=== PATIENT | female | born 1990 | race Hispanic/Latino ===

== ENCOUNTER 2022-10-30 11:00 | Emergency (ER) | payer OTHER ==
--- OUTSIDE RECORDS SUMMARY | 2022-10-30 11:06 | XMS REPORT | Continuity of Care Document ---
:1990 Author Organization [facility] t Address [address] [place] [address] [place] [id number] Care Team Providers Name Role Phone Mohini Bautista CNM Attending Clinician Unavailable GC_WHCBAY_Popillion Attending Clinician Unavailable Liyah Archuleta CNM Attending Clinician Unavailable Mohini Bautista CNM Admitting Clinician Unavailable Liyah Archuleta CNM Admitting Clinician Unavailable GC_WHCBAY_Popillion Admitting Clinician Unavailable Payers Payer Name Policy Type Policy Number Effective Date Expiration Date Rc triplett [facility] [id number] 2016 00:00:00 [employer] (MEDICAID HMO) Problems This patient has no known problems. Allergies, Adverse Reactions, Alerts This patient has no known allergies or adverse reactions. Medications This patient has no known medications. Procedures This patient has no known procedures. Encounters Start End Encounter Admission Attending Care Care Encounter Source Date/Time Date/Time Type Type Clinicians Facility Department ID 2022-10-20 Inpatient RUBENS Jett CLBT [id number] [facility] 00:23:00 Mohini [facility] 2022-10-02 2022-10-19 Outpatient RUBENS Jett CLBT [id number] [facility] 08:55:00 00:00:00 Mohini Calderón [facility] 2022-10-10 2022-10-10 Outpatient GC_WHCBAY_P PRIV PRIV [id number] [facility] 00:00:00 00:00:00 opillion [id number] Medic al 2022-10-10 2022-10-10 Outpatient GC_WHCBAY_P PRIV PRIV [id number] [facility] 00:00:00 00:00:00 [facility] [id number] Medic al 2022-09-17 2022-09-17 Outpatient Geremias, AILYN LABO [id number] [facility] 12:00:00 12:00:[address] [place] [address] Results Test Description Test Time Test Comments Results Result Comments Source CF MUTATION/POLYMORPHISMS 2022-09-24 21:07:00 Test Item Value Reference Range Interpretation Comme nts CF MUTATION/POLYMORPHISMS Comment: See_Comment RE SULTS: Negative for the 97 (test code = CFMUTPOLY) muta tions analyzedINTERPR ETATION:This individual is n egative for the mutations rachel zed.This negative result may need further interpretationd epending on the clinical indica tion. This result reducesbut does not eliminate the risk to be a CF carrier.COMMENTS:The detection rate varies with ethnicity and is listedbe low. The presence of an undetected m utation in the CFgene cannot be ruled out. In the absence of family histo ry,the remaining risk that a person w ith a negative resultcould hav e at least one CF mutation is lis gustavo in the table.If there is a fami ly history of CF, these risk figu res donot apply. As detailed inform ation regarding thisindividual' s family history would permit a more accurateassessm ent of this individual's ri sk to be a carrier ofcystic fibros is, please contact [facility] [phone] for a revised report.Mutation Detection Detection rates are based on mutationRates among Ethnic fr equencies in patients affected withGr oups cystic fibrosis. Among individua ls with an atypical or mild present ation (e.g. congenital abse nce of the vas deferens, pancr eatitis) detection rates may vary from those provided here. Carrier r isk reduction when no family Detectio nEthnicity history Rate References to 81% Jacquie in Me d 3:168, 2000AmericanAkai arnoldi 07/17 to 97% Am J Hum Ge net 51:951,1993Jeprem shAsian - Not Insufficient da ta ProvidedCaucasian 07/16 to 9 3% Jacquie in Med 3:168,2000; Ge net in Med 4:90, 2001Hispanic to 78% Jacquie in Med 3:168,11 07; www.dhs.[place].gov/ pcfh/gdb /html/PDE/CFStu dy.htmJewish, - Varies by Jacquie Testing 5:47, 2000non-Ashkena zi country Jacquie Testing, 1:351996 of originOther orMixed - Not Detection rate notEthnicity Pr ovided determined and varies with eth nicityThis interpretation is based on the clinical and fa milyrelationship information pro vided and the currentundersta nding of the molecular jacquie ics of this condition.MUTAT IONS ANALYZED:deltaF 311 4544hvl1 CFTRdele2,3 R33 4W*xideuB016* 3659delC* D1152 H N083AglwbtA300* 9875icb7 E60X R 347P*1078delT 3791delC E92X R 839T4163cpjKR 3849+10kbC to T * G178R R553X*1677delTA 3876delA G330X R560T*1717-1G t o A* 3905insT G480C E278U3132-2D to A 394delTT G542X* P43Y9091+1G to A* 4016insT G551D* N350S3508+5G to T 405+1G to A G85E* G4120U4629igl74 405+3A to C K710X S9519K6725crwW 406-1G to A L206W C8996Q5996yxb3 to A 444delA B2414K Z932S4611gqe81f ns5 457TAT to G O3425Q* Z876V68 08delA 574delA P574H S549R T to G214 3delT 621+1G to T* S3231Z S580M223 3delAA to G 663delT Q359K/T360K V52 1C1472uoaI* 711+1G to T* Q493X H4449N 2184insA 711+5G to A Q552X P0766S733 7insA 712-1G to T Q890X O0338U*27 89+5G to A* 935delA N4836A N1511A C to A1356zfkJ 936delTA S3370M Q1239Z C to G3120+1G to A* A455E* R1 162X* W373R9563E to A A559T X572Z9132 delC C524X R117HACOG/ACM G recommendedMETH ODS/LIMITATIONS:DNA is isolated fro m the sample and tested for the 97 CFmutations on the [employer] (ExtendEvent).Regio ns of the CFTR gene are amplified e nzymatically andsubjected to a solution-phase multiplex allel e-specificprimer extension with subsequent hybridization t o a beadarray and fluorescence de tection. Polymorphisms F 508C,I506V and I507V are included in this panel to rule outfalse positi ve uwqptR299 homozygotes. Re flex testing of5T is included in the panel for R117H interpretation. False positive or negative result s may occur for reasonsthat inc lude genetic variants, blood transfusions, bonemarrow longo splantation, erroneous repre sentation offamily relationships o r contamination of a samplewit h maternal cells. The assay provides informationintended to be used for carrier screening in adults ofreprod uctive age, as an aid in scre ening, andas a confirmatory te st for another medicallyestabl ished diagnosis in newborns and ch ildren. Thetest is not intended fo r use in diagnostictesti ng, pre-implantation screening, or f or anystand-alone diagnostic purp oses without confirmationby another medically established amanda gnostic productor procedure.Resul ts Released By: Martínez almodovar, Ph.D., DirectorReport Released By: Martínez Castaneda, Ph. D., DirectorPerformed At: [facility] [id number] [place], [place] [id number] Anjen [facility] [Automated message] The sy stem which generated this result tra nsmitted reference range: (). The reference range was not used to int erpret this result as normal/abnormal . AB HEPATITIS [id number] 05:12:00 Test Item Value Reference Range Interpretation Comments AB HEPATITIS C Non Reactive Non Reactive HCV antibody alone does (test code = not differentia te HCVAB) betweenprevious ly resolved infect ion and active infection.Equiv ocal and Reactive HCV an tibody results should befollowed up w ith an HCV RNA test to support the diagnosisof active HCV infection.P erformed At: [facility] [id number] [place], [place] [id number] Godfrey Bishop MD Ph:[phone] DRUGS OF ABUSE SCREEN [id number] 21:45:00 Test Item Value Reference Range Interpretation Comments UA PH DIPSTICK (test 6.0 5.0-8.0 code = DOMO) URN COCAINE (test code = NEGATIVE See_Comment [A utomated message] COCAURN) The system [employer] generated this result transmitted ref erence range: <300 ng/ mL. The reference r buzz was not used to interpret this result as normal/abnor mal. URN CANNABINOIDS (test NEGATIVE See_Comment [Aut omated message] code = CANNABURN) The system which generated this result transmitted ref erence range: <50 ng/m L. The reference range was not used to int erpret this result as normal/abnormal . URN AMPHETAMINE (test NEGATIVE See_Comment [Auto mated message] code = AMPHETURN) The system which generated this result transmitted ref erence range: <1000 ng /mL. The reference r buzz was not used to interpret this result as normal/abnor mal. URN BARBITURATE (test NEGATIVE See_Comment [Auto mated message] code = BARBITURN) The system which generated this result transmitted ref erence range: <200 ng/ mL. The reference r buzz was not used to interpret this result as normal/abnor mal. URN BENZODIAZEPINE (test NEGATIVE See_Comment [A utomated message] code = BENZOURN) The system which generated this result transmitted ref erence range: <200 ng/ mL. The reference r buzz was not used to interpret this result as normal/abnor mal. URN OPIATES (test code = NEGATIVE See_Comment [A utomated message] OPIATURN) The system [employer] generated this result transmitted ref erence range: <300 ng/ mL. The reference r buzz was not used to interpret this result as normal/abnor mal. URN PHENCYCLIDINE (PCP) NEGATIVE See_Comment [Au tomated message] (test code = PHENCURN) The s ystem which generated this result transmitted ref erence range: <25 ng/m L. The reference range was not used to int erpret this result as normal/abnormal . URN METHADONE (test code NEGATIVE See_Comment [A utomated message] = METHAURN) The system [employer] generated this result transmitted ref erence range: <300 ng/ mL. The reference r buzz was not used to interpret this result as normal/abnor mal. AB HIV 1 21:39:00 Test Item Value Reference Range Interpretation Comments AB HIV 1 2 (test Nonreactive NonReactive It is recog nized that code = EUB70QE) currently av ailable assays for thed etection of antibodies t o HIV-1 and/or HIV-2 ma y notdetect all i nfected individuals. A negative test result sharp snot exclude the pos sibility of exposure to or infection withH IV. HIV antibodies may be undetectable in some stages ofthe in fection and in some cli nical conditions. GESTATION SCREEN [id number] 21:32:00 Test Item Value Reference Range Interpretation Comments GESTATION SCREEN GLUCOSE (test code 178 mg/mL 90-140 H = GLU1S) THYROID STIMULATING [id number] 21:28:00 Test Item Value Reference Range Interpretation Comments THYROID STIMULATING 1.425 uIU/mL 0.36-3.74 N TSH REFE RENCE HORMONE (test code = RANGES: EUTHYROID: TSH) 0.35 - 4.3 mIU/ mL HYPO : > 5.5 mI U/mL HYPER : < 0.35 mIU/mL AG HEPAT B [id number] 21:26:00 Test Item Value Reference Range Interpretation Comments AG HEPAT B SURF (test code NonReactive Index Nonreactive = HBSAG) AB RUBELLA [id number] 21:26:00 Test Item Value Reference Range Interpretation Comments AB RUBELLA IGG Positive See_Comment IU/ML INTERP RETATION (test code = IUnit/mL OF SERUM RUBELL A-IGG RUBGAB) AB --------- ------- ---< 5.0 NEGATIVE - NO RUBELLA IGG ANT IBODY DETECTED5.0-9.9 EQUIVOCAL>= 10. 0 POSITIVE - RUBE LLA IGG ANTIBODY DETECT ED [Automated mess age] The system [employer] generated this result transmitted ref erence range: <5.0=Neg . The reference range was not used to int erpret this result as normal/abnormal . AB [id number] 21:26:00 Test Item Value Reference Range Interpretation Comments AB TREPONEMA (test code = Negative Index NonReactive TREPAB) CBC W/AUTO [id number] 18:27:00 Test Item Value Reference Range Interpretation Comments WHITE BLOOD CELL (test code = 10.9 K/mm3 4.5-12.5 N WBC) RED BLOOD CELL (test code = 4.99 mill/mm3 3.7-5.2 N RBC) HEMOGLOBIN (test code = HGB) 13.9 gram/dL 11.5-15.5 N HEMATOCRIT (test code = HCT) 41.9 % 36.0-46.0 N MEAN CELL VOLUME (test code = 84.0 fL 80-98 N MCV) MEAN CELL HGB (test code = MCH) 27.9 picogram 27.0-33.0 N MEAN CELL HGB CONCETRATION 33.2 gram/dL 33.0-36.0 N (test code = MCHC) RED CELL DISTRIBUTION WIDTH 13.1 % 11.6-16.2 N (test code = RDW) RED CELL DISTRIBUTION WIDTH SD 39.5 fL 37.0-51.0 N (test code = RDW-SD) PLATELET COUNT (test code = 339 K/mm3 150-450 N PLT) MEAN PLATELET VOLUME (test code 11.1 fL 6.7-11.0 H = MPV) NEUTROPHIL % (test code = NT%) 74.9 % 39.0-69.0 H IMMATURE GRANULOCYTE % (test 0.5 % 0.0-5.0 N code = IG%) LYMPHOCYTE % (test code = LY%) 18.6 % 25.0-55.0 L MONOCYTE % (test code = MO%) 4.4 % 0.0-10.0 N EOSINOPHIL % (test code = EO%) 1.2 % 0.0-5.0 N BASOPHIL % (test code = BA%) 0.4 % 0.0-1.0 N NUCLEATED RBC % (test code = 0.0 % 0-0 N NRBC%) NEUTROPHIL # (test code = NT#) 8.18 K/mm3 1.8-7.7 H IMMATURE GRANULOCYTE # (test 0.05 x10 3/uL 0-0.03 H code = IG#) LYMPHOCYTE # (test code = LY#) 2.03 K/mm3 1.0-5.0 N MONOCYTE # (test code = MO#) 0.48 K/mm3 0-0.8 N EOSINOPHIL # (test code = EO#) 0.13 K/mm3 0.0-0.5 N BASOPHIL # (test code = BA#) 0.04 K/mm3 0.0-0.2 N NUCLEATED RBC # (test code = 0.00 K/mm3 0.0-0.1 N NRBC#) URINALYSIS [id number] 12:05:00 Test Item Value Reference Range Interpretation Comments UA GLUCOSE DIPSTIC POC (test code Negative Negative = GLUUP) UA KETONE DIPSTICK POC (test code Negative Negative = KETUP) UA BLOOD DIPSTIC POC (test code = Negative NEGATIVE BLUP) UA PH DIPSTIC POC (test code = 5 5-8 N PHUP) UA PROTEIN DIPSTICK POC (test code 15 (Trace) Neg - 15 A = DPROUP) UA NITRITE DIPSTICK POC (test code Negative Negative = NITUP) UA LEUKOCYTE ESTERASE POC (test NEGATIVE NEGATIVE code = LEUUPOC) UA GLU: NEGATIVEKET UA NEGATIVEPH UA 5.0UA NIT NegativePROT UA 15 (TRACE)BL UA NEGATIVEUA YOVANY NegativeTime performed: 1008
[2022-10-30 11:37] LABS: Absolute Lymphocytes (CBC) 1.7 K/uL (0.7-4.9); Lymphocytes % 14.7 % (15.3-44.8); MCV 83.5 fL (80-100); MPV 8.6 fL (7.6-11.3); RBC Red Blood Cell Count 4.55 M/uL (3.86-4.86)
[2022-10-30 11:51] LABS: Specific Gravity 1.029 (1.005-1.030); Urine Bacteria >50 /HPF (<20); Urine Bilirubin NEGATIVE (Negative); Urine Blood 1+ (Negative); Urine Clarity Turbid (Clear); Urine Color Yellow (Yellow); Urine Glucose NEGATIVE (Negative); Urine Mucus 1+ /HPF (None Seen); Urine Protein 1+ (Negative); Urine Urobilinogen Normal (Normal)
[2022-10-30 12:11] LABS: Albumin 3.1 g/dL (3.4-5.0); Bilirubin Total 0.3 mg/dL (0.2-1.0); Potassium 3.7 mEq/L (3.5-5.1); Protein, Total 7.5 g/dL (6.4-8.2)
--- NOTE | 2022-10-30 12:16 | RAD REPORT ---
EXAM DESCRIPTION: US - OB Limited - 10/30/2022 11:54 am CLINICAL HISTORY: VAGINAL BLEEDING COMPARISON: No comparisons TECHNIQUE: Sonographic grayscale and color flow images of a second -trimester were obtaine d through approach. FINDINGS: A single live intrauterine is identified. Placenta has formed anteriorly. Biparietal diameter: 3.52 cm, corresponding to gestational age 16 weeks and 5 days. Head circumference: 12.94 cm, corresponding to gestational age 16 weeks and for days. Abdominal circumference: 11.15 cm, corresponding to gestational age 16 weeks and 6 days. Femur length: 2.08 cm, corresponding to gestational age 16 weeks and 1 days. heart rate: 152 BPM. Maternal ovaries are unremarkable. No free fluid. IMPRESSION: 1. Single live intrauterine . No abnormalities detected. 2. Calculated gestational age: 16 weeks, 4 days. Estimated due date by ultrasound: 04/12/2023.
[2022-10-30] MEDS ORDERED: NA CHLORIDE 0.9% 50 ML ONE (12:33)
[2022-10-30] MEDS ORDERED: CEFTRIAXONE 1000 MG/VIAL ONE (12:33)
--- NOTE | 2022-10-30 12:34 | ER ---
Nurse's Notes [facility] Name: Latrice Stevens Age: 32 yrs Sex: Female : 1990 Arrival Date: 10/30/2022 Time: 11:00 Bed 19 Private MD: Diagnosis: Vaginal bleeding in second trimester of ;Urinary tract infection in ;Abdominal cramping Presentation: 10/30 11:11 Chief complaint: Patient states: Vaginal bleeding since this morning. LMP 07/05/2022. ld1 Coronavirus screen: At this time, the client does not indicate any symptoms associated with coronavirus-19. Ebola Screen: No symptoms or risks identified at this time. Initial Sepsis Screen: Does the patient meet any 2 criteria? No. Patient's initial sepsis screen is negative. Does the patient have a suspected source of infection? No. Patient's initial sepsis screen is negative. Risk Assessment: Do you want to hurt yourself or someone else? Patient reports no desire to harm self or others. Onset of symptoms was October 30, 2022. 11:11 Method Of Arrival: Ambulatory ld1 11:11 Acuity: ADELAIDE 3 ld1 Triage Assessment: 11:11 General: Appears in no apparent distress. comfortable, Behavior is calm, cooperative, ld1 appropriate for age. Pain: Denies pain. EENT: No signs and/or symptoms were reported regarding the EENT system. Neuro: Level of Consciousness is awake, alert, obeys commands, Oriented to person, place, time, situation. Cardiovascular: Capillary refill < 3 seconds Patient's skin is warm and dry. Respiratory: Airway is patent Respiratory effort is even, unlabored. GI: Abdomen is round non-distended. : Reports vaginal bleeding that is. Derm: No signs and/or symptoms reported regarding the dermatologic system. Musculoskeletal: No signs and/or symptoms reported regarding the musculoskeletal system. DREDGE PUMPER: 11:11 LMP 07/05/2022 ld1 Historical: - Allergies: 11:11 No Known Allergies; ld1 - PMHx: 11:11 Hypertensive disorder; ld1 - PSHx: 11:11 section; ld1 - Immunization history:: Adult Immunizations up to date, Client reports receiving the 2nd dose of the Covid vaccine. - Social history:: Smoking status: Patient denies any tobacco usage or history of. Patient/guardian denies using alcohol. Screenin:48 [facility] ED Fall Risk Assessment (Adult) Score/Fall Risk Level 0 - 2 = Low Risk ph Oriented to surroundings, Maintained a safe environment, Educated pt \T\ family on fall prevention, incl call for assistance when getting out of bed, Hourly rounding (assess needs \T\ fall precautionary measures) done. Abuse screen: Denies threats or abuse. Nutritional screening: No deficits noted. Tuberculosis screening: No symptoms or risk factors identified. Assessment: 11:24 Reassessment: No changes from previously documented assessment. Patient and/or family ll1 updated on plan of care and expected duration. Pain level reassessed. Patient is alert, oriented x 3, equal unlabored respirations, skin warm/dry/pink. 12:32 Reassessment: Patient appears in no apparent distress at this time. Patient and/or ph family updated on plan of care and expected duration. Pain level reassessed. Patient is alert, oriented x 3, equal unlabored respirations, skin warm/dry/pink. 12:48 Reassessment: No changes from previously documented assessment. Patient and/or family ph updated on plan of care and expected duration. Pain level reassessed. Patient is alert, oriented x 3, equal unlabored respirations, skin warm/dry/pink. Vital Signs: 11:11 Weight 101.15 kg; Height 5 ft. 3 in. ; Pain 0/10; ld1 11:11 Pulse 118; ld1 11:11 BP 133 / 106; Temp 98.6(O); Pulse Ox 100% on R/A; ld1 12:49 BP 119 / 75; Pulse 96; Resp 17; Pulse Ox 99% ; ph 11:11 Body Mass Index 39.50 (101.15 kg, 160.02 cm) ld1 11:11 Pain Scale: Adult ld1 ED Course: 11:02 Patient arrived in ED. rg4 11:05 Abril Grady MD is Attending Physician. sd2 11:07 Arm band placed on Patient placed in an exam room, on a stretcher. ll1 11:10 Olga eHrcules RN is Primary Nurse. ll1 11:12 Triage completed. ld1 11:24 Urinalysis w/ reflexes Sent. ll1 11:24 Inserted saline lock: 20 gauge in left antecubital area, using aseptic technique. Blood ll1 collected. 11:55 US OB Limited In Process Unspecified. EDMS 12:48 No provider procedures requiring assistance completed. IV discontinued, intact, ph bleeding controlled, No redness/swelling at site. Pressure dressing applied. 12:49 Patient has correct armband on for positive identification. Bed in low position. Call ph light in reach. Cardiac monitoring not applicable on this patient. Administered Medications: 12:31 Drug: Rocephin IV 1 grams Route: IV; Rate: bolus; Site: left antecubital; ph 12:49 Follow up: Response: No adverse reaction; IV Status: Completed infusion; IV Intake: 50mlph Medication: 12:49 VIS not applicable for this client. ph Intake: 12:49 IV: 50ml; Total: 50ml. ph Outcome: 12:34 Discharge ordered by . [email or web address] 12:48 Discharged to home ambulatory. ph 12:48 Condition: stable 12:48 Discharge instructions given to patient, family, Instructed on discharge instructions, follow up and referral plans. medication usage, Demonstrated understanding of instructions, follow-up care, medications, Prescriptions given X 1. 12:50 Patient left the ED. ph Signatures: Dispatcher [employer] EDMS Rosalva Lake RN RN ph Garcia, Rubi rg4 Olga Hercules RN RN ll1 Alma Holden RN RN ld1 Abril Grady MD MD sd2
--- NOTE | 2022-10-30 12:34 | EDPHYS ---
Physician Documentation [facility] Name: Latrice Stevens Age: 32 yrs Sex: Female : 1990 Arrival Date: 10/30/2022 Time: 11:00 Bed 19 Private MD: LAKHWINDER Physician Abril Grady HPI: 10/30 11:19 This 32 yrs old Female presents to ER via Ambulatory with complaints of 16 sd2 Weeks , Vaginal Bleeding. 11:19 32-year-old female at 16 weeks gestation presents with chief complaint of vaginal sd2 bleeding. She reports that started this morning and that she only notices it when wiping. She did put a pad on but has not had any noticeable bleeding except when she goes to the restroom. She also states she has had a very small amount of abdominal pain. She does have a cervical cerclage in place due to having her prior son at 27 weeks. This was placed at the end of September. Her [facility] is located in [place].. [facility]: 11:11 LMP 07/05/2022 ld1 Historical: - Allergies: 11:11 No Known Allergies; ld1 - PMHx: 11:11 Hypertensive disorder; ld1 - PSHx: 11:11 section; ld1 - Immunization history:: Adult Immunizations up to date, Client reports receiving the 2nd dose of the Covid vaccine. - Social history:: Smoking status: Patient denies any tobacco usage or history of. Patient/guardian denies using alcohol. ROS: 11:19 Constitutional: Negative for fever, chills, and weight loss, Eyes: Negative for injury, sd2 pain, redness, and discharge, Cardiovascular: Negative for chest pain, palpitations, and edema, Respiratory: Negative for shortness of breath, cough, wheezing. 11:19 MS/Extremity: Negative for injury and deformity, Skin: Negative for injury, rash, and discoloration. 11:19 Abdomen/GI: Positive for abdominal pain, Negative for nausea, vomiting, and diarrhea. 11:19 : Positive for vaginal bleeding, Negative for injury or acute deformity, burning with urination, difficulty urinating. Exam: 11:19 Constitutional: This is a well developed, well nourished patient who is awake, alert, sd2 and in no acute distress. Head/Face: Normocephalic, atraumatic. Eyes: EOMI, normal conjunctiva bilaterally Chest/axilla: Normal chest wall appearance and motion. Nontender with no deformity. Cardiovascular: Regular rate and rhythm with a normal S1 and S2. No gallops, murmurs, or rubs. 2+ distal pulses. Respiratory: Lungs have equal breath sounds bilaterally, clear to auscultation and percussion. No rales, rhonchi or wheezes noted. No increased work of breathing, no retractions or nasal flaring. Abdomen/GI: Soft, non-tender, with normal bowel sounds. No guarding or rebound. No evidence of tenderness throughout. Back: No spinal tenderness. No costovertebral tenderness. Full range of motion. Skin: Warm, dry with normal turgor. Normal color with no rashes, no lesions, and no evidence of cellulitis. MS/ Extremity: Pulses equal, no cyanosis. Neurovascular intact. Full, normal range of motion. Ambulatory without difficulty. Psych: Awake, alert, with orientation to person, place and time. Behavior, mood, and affect are within normal limits. Vital Signs: 11:11 Weight 101.15 kg; Height 5 ft. 3 in. ; Pain 0/10; ld1 11:11 Pulse 118; ld1 11:11 BP 133 / 106; Temp 98.6(O); Pulse Ox 100% on R/A; ld1 12:49 BP 119 / 75; Pulse 96; Resp 17; Pulse Ox 99% ; ph 11:11 Body Mass Index 39.50 (101.15 kg, 160.02 cm) ld1 11:11 Pain Scale: Adult ld1 MDM: 11:18 Patient medically screened. sd2 11:19 Differential diagnosis: cervicitis, ectopic , ovarian cyst, uterine fibroids, sd2 urinary tract infection, vaginosis, among others. Data reviewed: vital signs, nurses notes. 12:30 Data reviewed: lab test result(s), radiologic studies, ultrasound. I considered the sd2 following discharge prescriptions or medication management in the emergency department Medications were administered in the Emergency Department. See MAR. Test considered but Not performed: CT: Not indicated with benign abdominal exam and risks outweigh benefits with current . Counseling: I had a detailed discussion with the patient and/or guardian regarding: the historical points, exam findings, and any diagnostic results supporting the discharge/admit diagnosis, lab results, radiology results, the need for outpatient follow up, to return to the emergency department if symptoms worsen or persist or if there are any questions or concerns that arise at home. Response to treatment: the patient's symptoms have markedly improved after treatment. ED course: Labs and imaging reviewed. Labs are consistent with a UTI and Rocephin was given for coverage. The patient will be sent home with Macrobid. The ultrasound does not show any acute abnormalities at this time. After a discussion of the risks and benefits of performing a pelvic exam in the ER, the patient will call her [facility] to have this performed and look out in the near future due to her cervical cerclage to ensure that everything is still in the proper placement. There were no significant abnormalities noted in this area at least on the ultrasound. The patient is not currently actively bleeding and is comfortable with plan for discharge and outpatient follow-up. Her vital signs have improved and she is no longer tachycardic. I believe her first blood pressure was also erroneous and it has improved at time of discharge.. 10/30 11:19 Order name: Abo/rh Typing; Complete Time: 12:08 sd2 10/30 11:19 Order name: CBC with Diff; Complete Time: 11:58 sd2 10/30 11:19 Order name: Urinalysis w/ reflexes; Complete Time: 11:58 sd10/30 11:19 Order name: CMP; Complete Time: 12:17 sd2 10/30 11:19 Order name: HCG-Quantitative; Complete Time: 12:17 sd2 10/30 11:55 Order name: Urine Culture [facility] 10/30 11:19 Order name: US OB Limited; Complete Time: 12:17 sd2 10/30 11:19 Order name: IV Saline Lock; Complete Time: 11:24 sd2 10/30 11:19 Order name: Labs collected and sent; Complete Time: 11:24 sd10/30 11:19 Order name: NPO; Complete Time: 11:24 sd2 Administered Medications: 12:31 Drug: Rocephin IV 1 grams Route: IV; Rate: bolus; Site: left antecubital; ph 12:49 Follow up: Response: No adverse reaction; IV Status: Completed infusion; IV Intake: 50mlph Disposition Summary: 10/30/22 12:34 Discharge Ordered Location: Home sd2 Problem: new sd2 Symptoms: have improved sd2 Condition: Stable sd2 Diagnosis - Vaginal bleeding in second trimester of sd2 - Urinary tract infection in sd2 - Abdominal cramping sd2 Followup: sd2 - With: Private Physician - When: 1 - 2 days - Reason: Recheck today's complaints, Continuance of care, Re-evaluation by your physician Discharge Instructions: - Discharge Summary Sheet sd2 - Vaginal Bleeding During , Second Trimester sd2 - and Urinary Tract Infection sd2 Forms: - Family Work Release ph - Medication Reconciliation Form sd2 - Thank You Letter sd2 - Antibiotic Education sd2 - Prescription Opioid Use sd2 Prescriptions: - Macrobid 100 mg Oral Capsule - take 1 capsule by ORAL route every 12 hours for 7 days; 14 capsule; Refills: 0, sd2 Product Selection Permitted Signatures: Dispatcher [employer] Rosalva Mcdonnell RN RN Alma Holden RN RN ld1 Abril Grady MD MD sd2
[2022-10-30 13:03] VITALS: TEMP 98.6
[2022-10-30 13:04] VITALS: BP 119/75; O2SAT 99
== END 2022-10-30 12:50 | disposition home or self-care (01) ==
LOC: ER 11:00
DX: O23.42 Unspecified infection of urinary tract in pregnancy, second trimester (principal); N39.0 Urinary tract infection, site not specified; Z3A.16 16 weeks gestation of pregnancy
CPT/HCPCS: 96365; 87088; 85025; 81001; 87086; 36415; 86900; 86901; 84702; 80053; 76815; 99284; J0696

== ENCOUNTER 2022-12-04 19:11 | Emergency (ER) | payer OTHER ==
--- OUTSIDE RECORDS SUMMARY | 2022-12-04 19:14 | XMS REPORT | Continuity of Care Document ---
:1990 Author Organization [facility] t Address [address] [place] [address] [place] [address] Care Team Providers Name Role Phone Mohini Bautista CNM Attending Clinician Unavailable GC_WHCBAY_Popillion Attending Clinician Unavailable Liyah Archuleta CNM Attending Clinician Unavailable Mohini Bautista CNM Admitting Clinician Unavailable GC_WHCBAY_Popillion Admitting Clinician Unavailable Liyah Archuleta CNM Admitting Clinician Unavailable Payers Payer Name Policy Type Policy Number Effective Date Expiration Date Rc triplett [facility] [id number] 2016 00:00:00 [employer] (MEDICAID HMO) Problems This patient has no known problems. Allergies, Adverse Reactions, Alerts This patient has no known allergies or adverse reactions. Medications This patient has no known medications. Procedures This patient has no known procedures. Encounters Start End Encounter Admission Attending Care Care Encounter Source Date/Time Date/Time Type Type Clinicians Facility Department ID 2022-10-20 Inpatient NICK Alvarezmadi RUBENS CLBT [id number] [facility] 00:23:00 Mohini Pickard [facility] 2022-12-02 2022-12-02 Outpatient GC_WHCBAY_P PRIV PRIV [id number] [facility] 00:00:00 00:00:00 opillion [id number] Medic al 2022-11-19 2022-11-19 Outpatient GC_WHCBAY_P PRIV PRIV [id number] [facility] 00:00:00 00:00:00 opillion [id number] Medic al 2022-11-19 2022-11-19 Outpatient GC_WHCBAY_P PRIV PRIV [id number] [facility] 00:00:00 00:00:00 opillion [id number] Medic al 2022-11-19 2022-11-19 Outpatient GC_WHCBAY_P PRIV PRIV [id number] [facility] 00:00:00 00:00:00 opillion [id number] Medic al 2022-11-04 2022-11-04 Outpatient GC_WHCBAY_P PRIV PRIV [id number] [facility] 00:00:00 00:00:00 opillion [id number] Medic al 2022-11-02 2022-11-02 Outpatient GC_WHCBAY_P PRIV PRIV [id number] [facility] 00:00:00 00:00:00 opillion [id number] Medic al 2022-10-30 2022-10-30 Outpatient GC_WHCBAY_P PRIV PRIV [id number] [facility] 00:00:00 00:00:00 opillion [id number] Medic al 2022-10-02 2022-10-19 Outpatient EL Bautista, HCABM CLBT [id number] [facility] 08:55:00 00:00:00 Mohini Calderón [facility] 2022-10-10 2022-10-10 Outpatient GC_WHCBAY_P PRIV PRIV [id number] [facility] 00:00:00 00:00:00 opillion [id number] Medic al 2022-10-10 2022-10-10 Outpatient GC_WHCBAY_P PRIV PRIV [id number] [facility] 00:00:00 00:00:00 opillion [id number] Medic al 2022-09-17 2022-09-17 Outpatient Geremias, HCACL LABO [id number] [facility] 12:00:00 12:00:[address] Results Test Description Test Time Test Comments Results Result Comments Source CF MUTATION/POLYMORPHISMS 2022-09-24 21:07:00 Test Item Value Reference Range Interpretation Comme nts CF MUTATION/POLYMORPHISMS Comment: See_Comment RE SULTS: Negative for the 97 (test code = CFMUTPOLY) muta tions analyzedINTERPRETATION:This individual is n egative for the mutations [...] s family history would permit a more a ccurateassessment of this individual 's risk to be a carrier ofcysti c fibrosis, please contact [facility] [phone] for a revised report.Mutation Detection Detection rates are based on mutationRates among Ethnic fr equencies in patients affected withGr oups cystic fibrosis. Among individua ls with an atypical or mild presentati on (e.g. congenital absence of the vas deferens, pancreatitis) d etection rates may vary from those provided here. Carrier risk re duction when no family Detectio nEthnicity history Rate References to 81% Maria M in Me d 3:168, 2000[facility] 07/17 to 97% Am J Hum Ge net 51:951,1993Jewi shAsian - Not Insufficient da ta ProvidedCaucasian 07/16 to 9 3% Maria M in Med 3:168,2000; Gen et in Med 4:90, 2001Hispanic to 78% Maria M in Med 3:168,11 07; www.dhs.[place].gov/ pcfh/gdb /html/PDE/CFStu dy.htmJemiah, - Varies by Maria M Testing 5:47, 2000non-Ashkena zi country Maria M Testing, 1:351996 of originOther orMixed - Not D etection rate notEthnicity Pr ovided determined and varies with eth nicityThis interpretation is based on the clinical and fa milyrelationship information pro vided and the currentundersta nding of the molecular genetics of thi s condition.MUTATIONS ANALYZED:deltaF 311 6251epo3 CFTRdele2,3 R33 4W*sxnjiT928* 3659delC* D1152 H H783KrzfhyR162* 4790rzv1 E60X R 347P*1078delT 3791delC E92X Q998S2148x nsTA 3849+10kbC to T* G178R R553X*167 7delTA 3876delA G330X R560T*1717-1G t o A* 3905insT G480C S339J7588-1B to A 394delTT G542X* T43N3032+1G to A* 4016insT G551D* A098E7721+5G to T 405+1G to A G85E* B7230Y4777dmh26 405+3A to C K710X W7843E1126tzxJ 406-1G to A L206W L9467O0472acd8 to A 444delA I4001B O487M6205qcc13l ns5 457TAT to G I9347B* U871G65 08delA 574delA P574H S549R T to G214 3delT 621+1G to T* T9796A I057E603 3delAA to G 663delT Q359K/T360K V52 1K0320rmgD* 711+1G to T* Q493X S5583W 2184insA 711+5G to A Q552X A6088P464 7insA 712-1G to T Q890X R4127G*27 89+5G to A* 935delA Q0662L Q2837Z C to B1185whsV 936delTA W1038L H2087M C to G3120+1G to A* A455E* N8746W* J075W0387V to A A559T L757Z8355cfkJ C 524X R117HACOG/ACMG recommendedMETH ODS/LIMITATIONS:DNA is isolated from t he sample and tested for the 97 CFmu tations on the [place] Array Platform ([employer]).Regio ns of the CFTR gene are amplified e nzymatically andsubjected to a solution-phase multiplex allel e-specificprimer extension with subsequent hybridization t o a beadarray and fluorescence de tection. Polymorphisms F508C,I506V and I507V are included in this panel to r ule outfalse positive hytomX274 homoz ygotes. Reflex testing of5T is include d in the panel for R117H interpret ation.False positive or negative res ults may occur for reasonsthat inc lude genetic variants, blood transfusi ons, bonemarrow transplantation , erroneous representation offamily relationships or contaminatio n of a samplewith mate rnal cells. The assay provides inform ationintended to be used for kristopher r screening in adults ofreproductive age, as an aid in screeni ng, andas a confirmatory te st for another medicallyestabl ished diagnosis in newborns and ch ildren. Thetest is not intended for us e in diagnostictesti ng, pre-implantation screening, or f or anystand-alone diagnostic purp oses without confirmationby another medically established amanda gnostic productor procedure.Resul ts Released By: Martínez Castaneda, Ph. D., DirectorReport Released By: Tania Castaneda, Ph.D., Director Performed At: [facility] [id number] [place], [place] [id number] [address] [facility] Ph:[phone] [ Automated message] The system which ge nerated this result transmitted ref erence range: (). The reference range was not used to interpret this result as normal/abnormal . AB HEPATITIS [id number] 05:12:00 Test Item Value Reference Range Interpretation Comments AB HEPATITIS C Non Reactive Non Reactive HCV antibody alone does (test code = not differentia te HCVAB) betweenprevious ly resolved infect ion and active infection.Equiv ocal and Reactive HCV an tibody results should befollowed up w ith an HCV RNA test to support the diagnosisof active HCV infection.P erformed At: [facility] [id number] [place], [place] [id number] Kyle L MD Ph:[phone] DRUGS OF ABUSE SCREEN [id number] 21:45:00 Test Item Value Reference Range Interpretation Comments UA PH DIPSTICK (test 6.0 5.0-8.0 code = DOMO) URN COCAINE (test code = NEGATIVE See_Comment [A utomated message] COCAURN) The system [employer] generated this result transmitted ref erence range: [...] See_Comment [A utomated message] OPIATURN) The system [employer] generated this result transmitted ref erence range: [...] [A utomated message] = METHAURN) The system [employer] generated this result transmitted ref erence range: <300 ng/ mL. The reference r buzz was not used to interpret this result as normal/abnor mal. AB HIV [id number] 21:39:00 Test Item Value Reference Range Interpretation Comments AB HIV 1 2 (test Nonreactive NonReactive It is recog nized that code = CGW88JK) currently av ailable assays for thed etection of antibodies t o HIV-1 and/or HIV-2 ma y notdetect all i nfected individuals. A negative test result sharp snot exclude the pos sibility of exposure to or infection withH IV. HIV antibodies may be undetectable in some stages ofthe in fection and in some cli nical conditions. GESTATION SCREEN [id number] 21:32:00 Test Item Value Reference Range Interpretation Comments GESTATION SCREEN GLUCOSE (test code 178 mg/mL 90-140 H = GLU1S) THYROID STIMULATING [id number] 21:28:00 Test Item Value Reference Range Interpretation Comments THYROID STIMULATING 1.425 uIU/mL 0.36-3.74 N TSH REFE RENCE HORMONE (test code = RANGES: EUTHYROID: TSH) 0.35 - 4.3 mIU/ mL HYPO : > 5.5 mI U/mL HYPER : < 0.35 mIU/mL AG HEPAT B [id number] 21:26:00 Test Item Value Reference Range Interpretation Comments AG HEPAT B SURF (test code NonReactive Index Nonreactive = HBSAG) AB RUBELLA [id number] 21:26:00 Test Item Value Reference Range Interpretation Comments AB RUBELLA IGG Positive See_Comment IU/ML INTERP RETATION (test code = IUnit/mL OF SERUM RUBELL A-IGG RUBGAB) AB --------- ------- ---< 5.0 NEGATIVE - NO RUBELLA IGG ANT IBODY DETECTED5.0-9.9 EQUIVOCAL>= 10. 0 POSITIVE - RUBE LLA IGG ANTIBODY DETECT ED [Automated mess age] The system [employer] generated this result transmitted ref erence range: <5.0=Neg . The reference range was not used to int erpret this result as normal/abnormal . AB [id number] 21:26:00 Test Item Value Reference Range Interpretation Comments AB TREPONEMA (test code = Negative Index NonReactive TREPAB) CBC W/AUTO [id number] 18:27:00 Test Item Value Reference Range Interpretation [...] = 0.00 K/mm3 0.0-0.1 N NRBC#) URINALYSIS [id number] 12:05:00 Test Item Value Reference Range Interpretation [...]
[2022-12-04 19:58] LABS: Hematocrit 38.4 % (36.0-45.0); Lymphocytes % 14.4 % (15.3-44.8); MCV 83.6 fL (80-100); MPV 8.9 fL (7.6-11.3); RBC Red Blood Cell Count 4.59 M/uL (3.86-4.86)
[2022-12-04] MEDS ORDERED: NA CHLORIDE 0.9% 1,000 ML ONE (19:59)
[2022-12-04 20:10] LABS: Specific Gravity 1.029 (1.005-1.030)
[2022-12-04 20:15] LABS: Specific Gravity 1.029 (1.005-1.030); Urine Bacteria 20-50 /HPF (<20); Urine Bilirubin NEGATIVE (Negative); Urine Blood 1+ (Negative); Urine Clarity Extremely Turbid (Clear); Urine Color Yellow (Yellow); Urine Glucose NEGATIVE (Negative); Urine Mucus 2+ /HPF (None Seen); Urine Protein 1+ (Negative); Urine Urobilinogen Normal (Normal)
[2022-12-04 20:23] LABS: Bilirubin Total 0.2 mg/dL (0.2-1.0); Potassium 3.9 mEq/L (3.5-5.1); Protein, Total 7.8 g/dL (6.4-8.2)
[2022-12-04] MEDS ORDERED: NA CHLORIDE 0.9% 100 ML ONE (20:43)
[2022-12-04] MEDS ORDERED: CEFTRIAXONE 1000 MG/VIAL ONE (20:43)
--- NOTE | 2022-12-04 21:24 | ER ---
Nurse's Notes [facility] Name: Latrice Stevens Age: 32 yrs Sex: Female : 1990 Arrival Date: 12/04/2022 Time: 19:11 Bed 9 Private MD: Diagnosis: Unspecified infection of urinary tract in , second trimester Presentation: 12/04 19:17 Chief complaint: Patient states: "I have a pain on my right kidney and when I go pee it vc1 hurt. Coronavirus screen: Vaccine status: Patient reports receiving the 2nd dose of the covid vaccine. Moderna Client denies travel out of the [place] in the last 14 days. At this time, the client does not indicate any symptoms associated with coronavirus-19. Ebola Screen: Patient negative for fever greater than or equal to 101.5 degrees Fahrenheit, and additional compatible Ebola Virus Disease symptoms Patient denies exposure to infectious person. Patient denies travel to an Ebola-affected area in the 21 days before illness onset. No symptoms or risks identified at this time. Initial Sepsis Screen: Does the patient meet any 2 criteria? HR > 90 bpm. No. Patient's initial sepsis screen is negative. Does the patient have a suspected source of infection? Yes: Dysuria/Frequency/Urgency/UTI. Risk Assessment: Do you want to hurt yourself or someone else? Patient reports no desire to harm self or others. Onset of symptoms was December 03, 2022. 19:17 Method Of Arrival: Ambulatory vc1 19:17 Acuity: ADELAIDE 3 vc1 Triage Assessment: 19:21 General: Appears in no apparent distress. uncomfortable, Behavior is calm, cooperative, vc1 appropriate for age. Pain: Complains of pain in right low back Pain does not radiate. Pain currently is 6 out of 10 on a pain scale. EENT: No deficits noted. No signs and/or symptoms were reported regarding the EENT system. Neuro: Level of Consciousness is awake, alert, obeys commands, Oriented to person, place, time, situation, Appropriate for age. Cardiovascular: No deficits noted. Respiratory: Airway is patent Respiratory effort is even, unlabored, Respiratory pattern is regular, symmetrical. GI: No deficits noted. No signs and/or symptoms were reported involving the gastrointestinal system. : Reports pain in right in lower back with urination, urinary frequency. Derm: No deficits noted. No signs and/or symptoms reported regarding the dermatologic system. Musculoskeletal: No deficits noted. No signs and/or symptoms reported regarding the musculoskeletal system. 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 - Social history:: Smoking status: Patient denies any tobacco usage or history of. Screenin:20 Abuse screen: Denies threats or abuse. Nutritional screening: No deficits noted. vc1 Tuberculosis screening: No symptoms or risk factors identified. 21:33 [facility] ED Fall Risk Assessment (Adult) History of falling in the last 3 months, os including since admission No falls in past 3 months (0 pts) Confusion or Disorientation No (0 pts) Intoxicated or Sedated No (0 pts) Impaired Gait No (0 pts) Mobility Assist Device Used No (0 pt) Altered Elimination No (0 pt) Score/Fall Risk Level 0 - 2 = Low Risk. Vital Signs: 19:17 BP 146 / 94; Pulse 108; Resp 18; Temp 98.1; Pulse Ox 99% ; Weight 99.79 kg; Height 5 vc1 ft. 4 in. ; Pain 6/10; 21:02 BP 125 / 76; Pulse 90; Resp 16; Pulse Ox 100% on R/A; os 19:17 Body Mass Index 37.76 (99.79 kg, 162.56 cm) vc1 19:17 Pain Scale: Adult vc1 ED Course: 19:14 Patient arrived in ED. es 19:18 Larry Kim PA is PHCP. cp 19:18 Dian Correa MD is Attending Physician. cp 19:19 Triage completed. vc1 19:20 Arm band placed on right wrist. vc1 19:25 Nanda Lozano, TRINA is Primary Nurse. os 19:51 CBC with Diff Sent. os 19:51 CMP Sent. os 19:51 Lipase Sent. os 19:51 Test, Urine Sent. os 19:51 Urinalysis w/ reflexes Sent. os 19:52 Inserted saline lock: 22 gauge in right antecubital area, using aseptic technique. ds4 Blood collected. 20:05 Radiology exam delayed due to test not completed at this time. [id number] 21:32 No provider procedures requiring assistance completed. os 21:32 IV discontinued. os 21:33 Patient has correct armband on for positive identification. Bed in low position. Call os light in reach. Side rails up X 1. Side rails up X2. 21:33 Urine Culture Sent. os Administered Medications: 19:51 Drug: NS 0.9% IV 1000 ml Route: IV; Rate: 1 bolus; Site: right antecubital; os 21:13 Follow up: Response: No adverse reaction os 21:33 Follow up: Response: No adverse reaction os 20:40 Drug: Rocephin IV 1 grams Route: IV; Rate: calculated rate; Site: right antecubital; os 21:13 Follow up: Response: No adverse reaction os 21:33 Follow up: Response: No adverse reaction os Medication: 21:33 VIS not applicable for this client. os Outcome: 21:23 Discharge ordered by . cp 21:32 Discharged to home ambulatory. os 21:32 Condition: stable 21:32 Discharge instructions given to patient, family, Instructed on discharge instructions, follow up and referral plans. Demonstrated understanding of instructions, follow-up care. 21:34 Patient left the ED. os Signatures: Paulette Ramos Donovan ds4 Larry Kim PA PA cp Calcote, Vanessa, RN RN vc1 Carmela Mclean jg10 Nanda Lozano, RN RN os Corrections: (The following items were deleted from the chart) 19:21 19:20 LMP 07/15/2022, Verified, EDC 04/21/2023, Gestational age from LMP: 20 vc1 weeks 3 days vc1
--- NOTE | 2022-12-04 21:24 | EDPHYS ---
Physician Documentation [facility] Name: Latrice Stevens Age: 32 yrs Sex: Female : 1990 Arrival Date: 12/04/2022 Time: 19:11 Bed 9 Private MD: ED Physician Dian Correa HPI: 12/04 19:45 This 32 yrs old Female presents to ER via Ambulatory with complaints of Pain cp in kidney area. 19:45 The patient presents with flank pain, on the right, urinary symptoms, dysuria. Onset: cp The symptoms/episode began/occurred yesterday. Associated signs and symptoms: Pertinent negatives: constipation, cramping, diarrhea, fever, vaginal bleeding, vaginal discharge, vomiting. Severity of symptoms: in the emergency department the symptoms are unchanged. Patient reports she is approximately 20 weeks gestation. 19:45 The patient's method of control includes nothing. cp CLIENT ADMINISTRATOR: 19:20 LMP 07/05/2022, Verified, EDC 04/11/2023, Gestational age from LMP: 21 weeks 6 vc1 days Historical: - Allergies: 19:19 No Known Allergies; vc1 - Home Meds: 19:19 Labetalol Oral [Active]; vc1 - PMHx: 19:19 Hypertensive disorder; vc1 - PSHx: 19:19 section; vc1 - Immunization history:: Client reports receiving the 2nd dose of the Covid vaccine. - Social history:: Smoking status: Patient denies any tobacco usage or history of. ROS: 19:50 Constitutional: Negative for body aches, chills, fever, poor PO intake. cp 19:50 : Positive for urinary symptoms, Negative for vaginal bleeding, vaginal discharge. cp 19:50 Eyes: Negative for injury, pain, redness, and discharge. cp 19:50 Cardiovascular: Negative for chest pain, edema, palpitations. 19:50 Respiratory: Negative for cough, shortness of breath, wheezing. cp 19:50 Abdomen/GI: Negative for abdominal pain, vomiting, diarrhea, constipation. 19:50 Back: Positive for flank pain, on the right. 19:50 Neuro: Negative for altered mental status, dizziness, headache, weakness. 19:50 All other systems are negative. Exam: 19:55 Constitutional: The patient appears in no acute distress, alert, awake, non-toxic, well cp developed, well nourished. 19:55 Head/Face: Normocephalic, atraumatic. cp 19:55 Eyes: Periorbital structures: appear normal, Conjunctiva: normal, no exudate, no injection, Sclera: no appreciated abnormality, Lids and lashes: appear normal, bilaterally. 19:55 ENT: External ear(s): are unremarkable, Nose: is normal, Mouth: Lips: moist, Oral mucosa: pink and intact, moist, Posterior pharynx: Airway: no evidence of obstruction, patent. 19:55 Chest/axilla: Inspection: normal. 19:55 Cardiovascular: Rate: tachycardic, Rhythm: regular. 19:55 Respiratory: the patient does not display signs of respiratory distress, Respirations: normal, no use of accessory muscles, no retractions, labored breathing, is not present. 19:55 Abdomen/GI: Inspection: gravid appearance, ia not appreciated, Bowel sounds: active, all quadrants, Palpation: soft, in all quadrants, mild abdominal tenderness, in the right upper quadrant and right lower quadrant, rebound tenderness, is not appreciated, involuntary guarding, is not appreciated. 19:55 Back: pain, that is mild, of the right mid back, ROM is normal. 19:55 Neuro: Orientation: to person, place \T\ time. Mentation: is normal, Motor: moves all fours, strength is normal, Sensation: is normal, Gait: is steady, at a normal pace, without difficulty. Vital Signs: 19:17 BP 146 / 94; Pulse 108; Resp 18; Temp 98.1; Pulse Ox 99% ; Weight 99.79 kg; Height 5 vc1 ft. 4 in. ; Pain 6/10; 21:02 BP 125 / 76; Pulse 90; Resp 16; Pulse Ox 100% on R/A; os 19:17 Body Mass Index 37.76 (99.79 kg, 162.56 cm) vc1 19:17 Pain Scale: Adult vc1 MDM: 19:25 Patient medically screened. cp 20:00 Differential diagnosis: urinary tract infection, kidney stone, pyelonephritis, sepsis. cp 21:22 Data reviewed: vital signs, nurses notes, lab test result(s). cp 21:22 Consideration of Admission/Observation Escalation of care including cp admission/observation considered. I considered the following discharge prescriptions or medication management in the emergency department Medications were administered in the Emergency Department. See MAR. Counseling: I had a detailed discussion with the patient and/or guardian regarding: the historical points, exam findings, and any diagnostic results supporting the discharge/admit diagnosis, lab results, the need for outpatient follow up, an OB/Gyne specialist, to return to the emergency department if symptoms worsen or persist or if there are any questions or concerns that arise at home. 12/04 19:40 Order name: CBC with Diff; Complete Time: 20:24 cp 12/04 19:40 Order name: CMP; Complete Time: 20:24 cp 12/04 19:40 Order name: Lipase; Complete Time: 20:24 cp 12/04 19:40 Order name: Test, Urine; Complete Time: 20:24 cp 12/04 19:40 Order name: Urinalysis w/ reflexes; Complete Time: 20:24 cp 12/04 20:21 Order name: Urine Culture EDWY 12/04 19:40 Order name: IV Saline Lock; Complete Time: 19:52 cp 12/04 19:40 Order name: Labs collected and sent; Complete Time: 19:52 cp 12/04 20:29 Order name: FHT's; Complete Time: 21:33 cp 12/04 20:48 Order name: Vital Signs: please update; Complete Time: 21:33 cp Administered Medications: 19:51 Drug: NS 0.9% IV 1000 ml Route: IV; Rate: 1 bolus; Site: right antecubital; os 21:13 Follow up: Response: No adverse reaction os 21:33 Follow up: Response: No adverse reaction os 20:40 Drug: Rocephin IV 1 grams Route: IV; Rate: calculated rate; Site: right antecubital; os 21:13 Follow up: Response: No adverse reaction os 21:33 Follow up: Response: No adverse reaction os Disposition Summary: 12/04/22 21:23 Discharge Ordered Location: Home cp Problem: new cp Symptoms: have improved cp Condition: Stable cp Diagnosis - Unspecified infection of urinary tract in , second trimester cp Followup: cp - With: Private Physician - When: 2 - 3 days - Reason: Recheck today's complaints Discharge Instructions: - Discharge Summary Sheet cp - Second Trimester of cp - and Urinary Tract Infection cp Forms: - Medication Reconciliation Form cp - Thank You Letter cp - Antibiotic Education cp - Prescription Opioid Use cp Prescriptions: - cefpodoxime 200 mg Oral Tablet - take 1 tablet by ORAL route every 12 hours for 7 days with food; 14 tablet; cp Refills: 0, Product Selection Permitted Signatures: Dispatcher [employer] EDMS Larry Kim PA PA cp Calcote, Vanessa, RN RN vc1 Nanda Lozano RN RN os Corrections: (The following items were deleted from the chart) 20:23 19:45 Stone Protocol+CT.RAD.BRZ ordered. EDMS EDMS 21:24 21:23 UTI/ Urinary tract infection, site not specified cp cp
[2022-12-04 21:57] VITALS: TEMP 98.1
[2022-12-04 22:14] VITALS: BP 125/76; O2SAT 100
== END 2022-12-04 21:34 | disposition home or self-care (01) ==
LOC: ER 19:11
DX: O23.42 Unspecified infection of urinary tract in pregnancy, second trimester (principal); N39.0 Urinary tract infection, site not specified; O16.2 Unspecified maternal hypertension, second trimester; Z3A.21 21 weeks gestation of pregnancy
CPT/HCPCS: 87088; 85025; 81001; 87086; 36415; 81025; 83690; 80053; 96374; 99284; J7030; J0696